=== PATIENT | male | born 1955 | race Caucasian/White ===

== ENCOUNTER 2018-03-24 04:34 | Emergency (ER) | payer MEDICARE ==
[~2018-03-24] VITALS: Ht 167.6 cm; Wt 88.0 kg
[~2018-03-24 04:34] MED LIST: ASPI-621 PO; ASPI-650 PO; ATOR40TA78 PO; DIGO125T10 PO; FLUO20CA8 PO; FURO20TA3 PO; FURO40TA6 PO; GLIP10TA13 PO; MAGNESIUM PO; METF1000 PO; METO25TA91 PO; OXYC5TAB3 PO; POTA20TA89 PO; PRAS10TA4 PO; SITA100T PO; SPIR25TA5 PO
[2018-03-24] MEDS ORDERED: EPINEPHRINE SYRINGE 0.1 MG/ML, 10ML ONE ×2 (04:40→12:00)
[2018-03-24] MEDS ORDERED: CODE BLUE RESPONSE XX ONE (05:00)
== END 2018-03-24 06:25 | disposition expired ==
LOC: ED 05:33
DX: I46.9 Cardiac arrest, cause unspecified (principal); I49.01 Ventricular fibrillation; I10 Essential (primary) hypertension; E11.9 Type 2 diabetes mellitus without complications; E78.5 Hyperlipidemia, unspecified; I25.2 Old myocardial infarction
CPT/HCPCS: 92950; 99285